=== PATIENT | male | born 1980 | race Caucasian/White ===

== ENCOUNTER 2024-09-30 11:01 | Emergency (ER) | payer SELFPAY ==
[~2024-09-30] VITALS: Ht 170.2 cm; Wt 81.6 kg
[2024-09-30 11:09] VITALS: O2SAT 99
[2024-09-30 11:24] VITALS: BP 121/66; PULSE 67; RESP 16; TEMP 36.7; O2SAT 99
[2024-09-30] MEDS ORDERED: P20 MT (13:30)
== END 2024-09-30 13:36 | disposition home or self-care (01) ==
LOC: ER 12:48
DX: L23.7 Allergic contact dermatitis due to plants, except food (principal)
CPT/HCPCS: 99283